=== PATIENT | male | born 1990 | race Caucasian/White ===

== ENCOUNTER 2020-08-08 15:16 | Outpatient (REF) | payer BC, SELFPAY ==
[2020-08-08 21:19] LABS: TSH (W/Ref FT4) 1.12 uIU/mL (0.36-3.74)
== END 2020-08-08 15:36 ==
LOC: NCHCN 15:16
PROVIDERS: PCP Internal Medicine; Visit Provider Nurse Practitioner Family
DX: K59.09 Other constipation (principal)
CPT/HCPCS: 84443

== ENCOUNTER 2021-07-28 14:19 | Outpatient (REF) | payer SELFPAY ==
[2021-07-30 15:19] LABS: Chlamydia Result Negative (Negative); GC Result Negative (Negative)
== END 2021-07-28 14:20 | disposition home or self-care (01) ==
LOC: LBN 14:19
PROVIDERS: PCP Internal Medicine; Visit Provider Nurse Practitioner Family
DX: R10.31 Right lower quadrant pain (principal)
CPT/HCPCS: 87491; 87591